=== PATIENT | female | born 1970 | race Caucasian/White ===

== ENCOUNTER → 2021-07-29 | Outpatient (CLI) | payer OTHER ==
[~2021-07-29] MED LIST: BAYER BACK & B1 EACH PO; COLACE 100MG C100 MG PO; ESTRADIOL1 MG PO; IBUPROFEN600 MG PO; LEVOXYL125 MCG PO; NORCO 10-325 T1 EACH PO; PEPCID20 MG PO; VITAMIN B12-FO1 EACH PO; VITAMIN D-32000 UNI1 PO
== END ==
LOC: EXRD 10:37
DX: M54.50 Low back pain, unspecified (principal); M51.36 Other intervertebral disc degeneration, lumbar region
CPT/HCPCS: 72100